=== PATIENT | male | born 1965 | race Caucasian/White ===

== ENCOUNTER 2016-10-11 23:45 | Emergency (ER) | payer BC ==
[2016-10-12 01:10] VITALS: BP 150/93
== END 2016-10-12 01:20 | disposition home or self-care (01) ==
LOC: ED 23:45
DX: T15.01XA Foreign body in cornea, right eye, initial encounter (principal); R51 Headache; G47.00 Insomnia, unspecified; Y92.89 Other specified places as the place of occurrence of the external cause